=== PATIENT | male | born 1960 ===

== ENCOUNTER 2018-05-21 12:21 | Emergency (ER) | payer MEDICAID, OTHER ==
[2018-05-21 12:21] VITALS: BMI 29.2
[2018-05-21 12:30] VITALS: BP 148/81; PULSE 72; RESP 18; TEMP 98.3; O2SAT 98
[2018-05-21] MEDS ORDERED: Hydrogen Peroxide 3% Soln (480ml) TP ONE (12:45)
--- NOTE | 2018-05-21 12:50 | ED PDOC ---
HPI: General Adult Time Seen by Provider: 05/21/18 12:42 Chief Complaint (Nursing): ENT Problem Chief Complaint (Provider): Ear Pain History Per: Patient History/Exam Limitations: no limitations Onset/Duration Of Symptoms: Days (1x) Current Symptoms Are (Timing): Still Present Additional Complaint(s): 58 year old male presents to the ED for an evaluation of left ear pain and decreased hearing onset yesterday. Patient tried hydrogen peroxide and NSAIDs without any relief. He reports his ear is impacted. Otherwise, patient denies fever, cough, shortness of breath, abdominal pain or rash. PMD: not provided Past Medical History Reviewed: Historical Data, Nursing Documentation, Vital Signs Vital Signs: Last Vital Signs Temp 98.3 F 05/21/18 12:29 Pulse 72 05/21/18 12:29 Resp 18 05/21/18 12:29 BP 148/81 05/21/18 12:29 Pulse Ox 98 05/21/18 12:29 - Medical History PMH: HTN Denies: Chronic Kidney Disease - Surgical History Surgical History: Appendectomy - Family History Family History: States: Unknown Family Hx - Home Medications Home Medications: Ambulatory Orders Medication Instructions Recorded Losartan/Hydrochlorothiazide 50 mg PO DAILY 12/24/14 [Losartan Potassium-Hydrochlorothiazide 12.5 M] RX: Aspirin [Aspirin EC] 81 mg PO DAILY 12/24/14 - Allergies Allergies/Adverse Reactions: Allergies Allergy/AdvReac Type Severity Reaction Status Date / Time No Known Allergies Allergy Verified 05/21/18 12:37 Review of Systems ROS Statement: Except As Marked, All Systems Reviewed And Found Negative Constitutional: Negative for: Fever ENT: Positive for: Ear Pain (left) Respiratory: Negative for: Cough, Shortness of Breath Gastrointestinal: Negative for: Abdominal Pain Skin: Negative for: Rash Physical Exam - Reviewed Nursing Documentation Reviewed: Yes Vital Signs Reviewed: Yes - Physical Exam Appears: Positive for: Well, Non-toxic, No Acute Distress Head Exam: Positive for: ATRAUMATIC, NORMAL INSPECTION, NORMOCEPHALIC Skin: Positive for: Normal Color, Warm, Dry. Negative for: Rash Eye Exam: Positive for: Normal appearance ENT: Positive for: TM Is/Are (Left TM not visible due to cerumen impact, moderate cerumen in the ear ) Neurologic/Psych: Positive for: Alert, Oriented (x3). Negative for: Motor/Sensory Deficits - ECG O2 Sat by Pulse Oximetry: 98 (RA) Pulse Ox Interpretation: Normal Medical Decision Making Medical Decision Making: Time: 1242 Initial impression:Left ear pain ------- Scribe Attestation: Documented by Fernando Sheikh, acting as a scribe for Ryan Jimenez PA-C. Provider Scribe Attestation: All medical record entries made by the Scribe were at my direction and personall y dictated by me. I have reviewed the chart and agree that the record accurately reflects my personal performance of the history, physical exam, medical decision making, and the department course for this patient. I have also personally directed, reviewed, and agree with the discharge instructions and disposition. Disposition - Clinical Impression Clinical Impression: Impacted cerumen of left ear - Patient ED Disposition Is Patient to be Admitted: No - Disposition Disposition: Routine/Home Disposition Time: 12:57 Condition: FAIR Instructions: Ear Wax Impaction (DC) Procedure: Blank - Time Time Performed: 12:45 - Time Out Time Out: Site verified - Procedure Procedure:: left ear irrigation - Consent obtained: Consent obtained: Verbal - Performed by: Performed by:: Mid-level provider - Patient Tolerated Procedure Patient Tolerated Procedure:: Well (left ear irrigated profusely with normal saline and hydrogen peroxide with moderate removal of cerumen. TM visualized wnl)
== END 2018-05-21 13:52 | disposition home or self-care (01) ==
LOC: H.ER 12:21
DX: H61.22 Impacted cerumen, left ear (principal); I10 Essential (primary) hypertension; Z79.82 Long term (current) use of aspirin; Z79.899 Other long term (current) drug therapy